=== PATIENT | female | born 1965 | race Hispanic/Latino ===

== ENCOUNTER 2022-11-29 07:45 | Emergency (ER) | payer MEDICARE ==
[~2022-11-29] VITALS: Ht 157.5 cm; Wt 56.7 kg
[2022-11-29 08:17] LABS: BASOPHILS % (AUTO) 0.3 % (0.0-5.0); EOSINOPHILS % (AUTO) 1.7 % (0.0-8.0); HEMATOCRIT 40.4 % (36-48); LYMPHOCYTES % (AUTO) 22.6 % (21.0-51.0); MEAN CORPUSCULAR HEMOGLOBIN 30.4 pg (27.0-33.0); MEAN CORPUSCULAR HGB CONC 31.9 g/dL (32.0-36.0); MEAN CORPUSCULAR VOLUME 95.1 fL (79-99); MONOCYTES % (AUTO) 1.5 % (3.0-13.0); NEUTROPHILS % (AUTO) 73.3 % (40.0-77.0); PLATELET COUNT (AUTO) 212 K/uL (130-400); RED BLOOD CELL COUNT(AUTO) 4.25 MIL/uL (4.00-5.50); RED CELL DISTRIBUTION WIDTH 14.9 % (11.0-15.5); WHITE BLOOD COUNT (AUTO) 7.8 K/uL (4.8-10.8)
[2022-11-29 08:28] LABS: CREATININE 0.8 mg/dL (0.5-1.5)
[2022-11-29 08:33] LABS: ALBUMIN 2.8 g/dL (3.5-5.0); TOTAL PROTEIN, SERUM 6.7 g/dL (6.0-8.3)
[2022-11-29] MEDS ORDERED: OCTYL 2-CYANOACRYLATE 1 EACH TP ONE (08:57)
[2022-11-29] MEDS: OCTYL 2-CYANOACRYLATE 1 EACH TP SCH ×2 (09:00→13:10)
[2022-11-29] MEDS ORDERED: TETANUS/DIPHTHERIA TOXOID [ADULT] 0.5 ML VIAL IM ONE (09:00)
[2022-11-29] MEDS: LORAZEPAM 2 MG/ML 1 ML VIAL IVP ONE ×2 (13:10→13:19)
[2022-11-29 15:28] VITALS: BP 129/84
[2022-11-29] MEDS ORDERED: MELO-106 PO (15:43)
[2022-11-30] MEDS ORDERED: CEPHA2505L PO (12:31)
== END 2022-11-29 16:18 | disposition home or self-care (01) ==
LOC: EDH 07:45
DX: S01.81XA Laceration without foreign body of other part of head, initial encounter (principal); E11.9 Type 2 diabetes mellitus without complications; E03.9 Hypothyroidism, unspecified; E78.00 Pure hypercholesterolemia, unspecified; M43.12 Spondylolisthesis, cervical region; W18.39XA Other fall on same level, initial encounter; Y93.89 Activity, other specified; Y92.89 Other specified places as the place of occurrence of the external cause; Y99.8 Other external cause status
CPT/HCPCS: 99285; 80053; 85025; 36415; 90714; 71045; 73522; 70450; 72125; 70486; 72141; 96374; 90471; 12011; J2060 ×2

== ENCOUNTER 2022-11-30 08:27 | Emergency (ER) | payer MEDICARE ==
[~2022-11-30] VITALS: Ht 157.5 cm; Wt 59.0 kg
[~2022-11-30 08:27] MED LIST: MELO-106 PO
[2022-11-30 08:57] LABS: BASOPHILS % (AUTO) 0.6 % (0.0-5.0); EOSINOPHILS % (AUTO) 2.3 % (0.0-8.0); HEMATOCRIT 39.3 % (36-48); LYMPHOCYTES % (AUTO) 20.9 % (21.0-51.0); MEAN CORPUSCULAR HEMOGLOBIN 30.7 pg (27.0-33.0); MEAN CORPUSCULAR HGB CONC 32.8 g/dL (32.0-36.0); MEAN CORPUSCULAR VOLUME 93.6 fL (79-99); MONOCYTES % (AUTO) 3.7 % (3.0-13.0); NEUTROPHILS % (AUTO) 72.1 % (40.0-77.0); PLATELET COUNT (AUTO) 186 K/uL (130-400); RED CELL DISTRIBUTION WIDTH 14.6 % (11.0-15.5)
[2022-11-30 08:57] LABS: APPEARANCE,URINE CLEAR (CLEAR); BILIRUBIN,URINE NEGATIVE (NEGATIVE); COLOR,URINE LIGHT-YELLOW (YELLOW); GLUCOSE, URINE (UA) NEGATIVE (NEGATIVE); KETONES,URINE NEGATIVE (NEGATIVE); LEUKOCYTE ESTERASE ,URINE 500 Leu/uL (NEGATIVE); NITRATE,URINE NEGATIVE (NEGATIVE); OCCULT BLOOD,URINE NEGATIVE (NEGATIVE); PROTEIN,URINE NEGATIVE (NEGATIVE); UROBILINOGEN,URINE 0.2 mg/dL (0.2-1.0)
[2022-11-30 09:10] LABS: BACTERIA,URINE RARE /HPF (None Seen); MUCUS,URINE RARE LPF (None Seen); SQUAMOUS EPITHELIAL CELL,UR RARE /HPF (0-2)
[2022-11-30 09:14] LABS: CREATININE 0.7 mg/dL (0.5-1.5); POTASSIUM 3.9 mmol/L (3.5-5.1)
[2022-11-30 09:19] LABS: TOTAL PROTEIN, SERUM 6.7 g/dL (6.0-8.3)
[2022-11-30] MEDS ORDERED: CEFTRIAXONE 2GM VIAL IVPB ONE (09:30)
[2022-11-30] MEDS ORDERED: 0.9%NACL 1000ML 1,503 ML IV ONE (09:30)
[2022-11-30] MEDS ORDERED: CEPHA2505L PO (12:31)
[2022-11-30 14:11] VITALS: BP 110/60
== END 2022-11-30 14:11 | disposition home or self-care (01) ==
LOC: EDH 08:27
DX: N39.0 Urinary tract infection, site not specified (principal); E03.9 Hypothyroidism, unspecified; E11.9 Type 2 diabetes mellitus without complications; E78.00 Pure hypercholesterolemia, unspecified; F31.9 Bipolar disorder, unspecified; Z79.1 Long term (current) use of non-steroidal anti-inflammatories (NSAID); Z87.440 Personal history of urinary (tract) infections
CPT/HCPCS: 99285; 96365; 71045; 96366; 84484; 80053; 85025; 87077; 87088; 87186; 83605 ×2; 81001; 36415; 93005; J7030; J0696